=== PATIENT | male | born 1955 | race Caucasian/White ===

== ENCOUNTER → 2020-03-24 | Outpatient (CLI) | payer BC ==
[2020-03-26 12:59] LABS: HEMOGLOBIN 14.8 G/DL (13.3-17.7); RED CELL DISTRIBUTION WIDTH 12.1 % (10.0-14.5); WHITE BLOOD COUNT 4.5 10^3/uL (4.3-11.0)
[2020-03-26 13:00] LABS: MEAN PLATELET VOLUME 10.3 FL (7.4-10.4)
== END ==
LOC: LAB 10:22
PROVIDERS: ATTEND Orthopaedic Surgery
DX: Z01.812 Encounter for preprocedural laboratory examination (principal)
CPT/HCPCS: 36415; 85027